=== PATIENT | female | born 1990 | race Caucasian/White ===

== ENCOUNTER → 2019-06-03 15:54 | Outpatient (CLI) | payer BC, SELFPAY ==
--- NOTE | ~2019-06-03 | US_ITS ---
EXAMINATION: US OB <= 14 weeks fetus DATE: 06/03/2019 16:17 INDICATION: Small for gestational age during late first trimester . Assess heart tones . TECHNIQUE: Real-time ultrasound of the pelvis was performed. The interpreting radiologist was not pre sent for the study. COMPARISON: 04/18/2019 FINDINGS: There is a single living fetus in variable presentation with motion reported by the maintenance person . The placenta is anterior. heart rate is 154 beats per minute (bpm). The amniotic fluid is martinez bjectively normal. The following biometric data were obtained: BPD: 2.5 cm -> 14 weeks 1 days Head circumference: 9.2 cm -> 14 weeks 1 days Abdominal circumference: 7.5 cm -> 14 weeks 0 days Femur length: 1.1 cm -> 13 weeks 2 days These measurements are concordant. Head circumference to abdominal circumference ratio: 1.23 (normal range 1.10-1.34). Estimated weight: 81 g (+/-) 12 g. IMPRESSION: 1. Single living fetus in variable presentation with heart rate of 154 bpm. 2. Estimated weight is 86th percentile by Hadlock criteria when 12/10/2019 is used as the estima danielito date of delivery (SARITHA). Please correlate with clinical information or earlier ultrasounds for mos t accurate SARITHA. Reviewed, dictated and finalized at location A. ENGINEER IMPRESSION: 1. Single living fetus in variable presentation with heart rate of 154 bp m. 2. Estimated weight is 86th percentile by Hadlock criteria when 12/10/2019 is used as the estimated date of delivery (SARITHA). Please correlate with clinica l information or earlier ultrasounds for most accurate SARITHA.
== END ==
PROVIDERS: Visit Provider Obstetrics & Gynecology
DX: Z34.91 Encounter for supervision of normal pregnancy, unspecified, first trimester (principal); Z3A.01 Less than 8 weeks gestation of pregnancy
CPT/HCPCS: 76801

== ENCOUNTER → 2019-07-23 08:17 | Outpatient (CLI) | payer BC, SELFPAY ==
--- NOTE | ~2019-07-23 | US_ITS ---
EXAMINATION: US OB /maternal detail DATE: 07/23/2019 09:07 INDICATION: Assess anatomy during second trimester of . TECHNIQUE: Multiple obstetric sonographic images performed. COMPARISON: 06/03/2019 FINDINGS: There is a single living fetus in vertex presentation. The placenta is anterior and not low-lying wi th caudal margin 4.2 cm from the internal cervical os. NIRAV measures 15.5 cm which is normal (5th%-95 %: 9.3-21.2 cm at 20 weeks estimated gestational age) heart rate of 131 beats per minute. The following anatomy was identified as normal: Ventricles, choroid plexus, falx and cava septum pellucidum Cerebellum and cisterna magna Nuchal fold Upper lip Spine Heart Diaphragm Stomach Kidneys Bladder 3 vessel cord and cord insertion Bilateral upper and lower extremities including hands and feet The following biometric data were obtained: BPD: 408 cm -> 20 weeks 4 days Head circumference: 17.5 cm -> 20 weeks 0 days Abdominal circumference: 15.5 cm -> 20 weeks 4 days Femur length: 3.4 cm -> 20 weeks 4 days These measurements are concordant. Head circumference to abdominal circumference ratio: 1.13 (normal range 1.07-1.25). Estimated weight: 361 g (+/-) 54 g. or 13 oz. (+/-) 2 oz. IMPRESSION: 1. Single living fetus with vertex presentation with heart rate of 131 bpm. 2. Biometric data concordant within 3 days of prior ultrasound estimated gestational age of 20 weeks 0 day(s) with ultrasound estimated date of delivery (SARITHA) of 12/10/2019. Estimated weight is 76t h percentile by Hadlock criteria when 12/10/2019 is used as the SARITHA. Please correlate with clinical in formation or earlier ultrasounds for most accurate SARITHA. 3. Normal survey. 4. Normal amniotic fluid index of 15.5 cm. Reviewed, dictated and finalized at location A. IMPRESSION: 1. Single living fetus with vertex presentation with heart rate of 131 b pm. 2. Biometric data concordant within 3 days of prior ultrasound estimated gestat ional age of 20 weeks 0 day(s) with ultrasound estimated date of delivery (SARITHA) of 12/10/2019. Estimated weight is 76th percentile by Hadlock criteria wh en 12/10/2019 is used as the SARITHA. Please correlate with clinical information or earlier ultrasounds for most accurate SARITHA. 3. Normal survey. 4. Normal amniotic fluid index of 15.5 cm.
== END ==
PROVIDERS: Visit Provider Obstetrics & Gynecology
DX: Z36.9 Encounter for antenatal screening, unspecified (principal); Z3A.18 18 weeks gestation of pregnancy
CPT/HCPCS: 76805

== ENCOUNTER 2019-11-13 09:25 | Outpatient (CLI) | payer BC, SELFPAY ==
--- NOTE | ~2019-11-13 | US_ITS ---
EXAMINATION: US OB >= 14 weeks Fetus DATE: 11/13/2019 12:55 INDICATION: Encounter for supervision of first . Third trimester. TECHNIQUE: Real-time ultrasound of the pelvis was performed. COMPARISON: Ultrasound 07/15/2019, 06/03/2019, 04/18/2019 FINDINGS: There is a single living fetus in vertex presentation. The placenta is anterior and fundal. he art rate is 122 beats per minute (bpm). The amniotic fluid volume is subjectively normal. The following biometric data were obtained: Biparietal diameter (BPD): 9.0 cm; head circumference (HC): 32.5 cm; abdominal circumference (AC): 30 .8 cm; femur length (FL): 7.0 cm. These measurements are concordant. Estimated weight is 2669 g +/- 400 g, which correlates with 31st percentile when 12/10/19 is use d as estimated date of delivery. As single measurements, these parameters are each equal to the following estimated gestational ages: BPD: 36 weeks 2 days. HC: 36 weeks 6 days. AC: 34 weeks 5 days. FL: 35 weeks 6 days. estimated gestational age based solely on measurements from this exam is 36 weeks 0 days +/- 2 weeks 4 days. IMPRESSION: 1. Single living fetus in vertex presentation. 2. Estimated weight is 2669 g +/- 400 g, which correlates with 31st percentile when 12/10/19 is used as estimated date of delivery. This date was set by ultrasound on 04/18/2019. Reviewed, dictated and finalized at location A. IMPRESSION: 1. Single living fetus in vertex presentation. 2. Estimated weight is 2669 g +/- 400 g, which correlates with 31st perc entile when 12/10/19 is used as estimated date of delivery. This date was set by ultrasound on 04/18/2019.
== END 2019-11-13 09:26 | disposition home or self-care (01) ==
PROVIDERS: Visit Provider Obstetrics & Gynecology
DX: Z34.03 Encounter for supervision of normal first pregnancy, third trimester (principal); Z3A.36 36 weeks gestation of pregnancy
CPT/HCPCS: 76805

== ENCOUNTER 2019-11-15 09:07 | Outpatient (CLI) | payer BC, SELFPAY ==
[2019-11-15 09:31] LABS: Basophils Percent Auto 0.3 % (0.2-1.2); Eosinophils Absolute Auto 0.1 K/mm3 (0-0.3); Eosinophils Percent Auto 1.1 % (0-4.4); Hematocrit 38.2 % (37.0-47.0); Hemoglobin 12.7 g/dL (12.0-15.0); Immature Granulocyte Absolute 0.07 K/mm3 (0.00-0.031); Immature Granulocyte Percent A 0.7 % (0-0.5); Lymphocytes Percent Auto 18.2 % (18.3-44.2); Mean Corpuscular HGB Conc 33.2 g/dl (32-36); Mean Corpuscular Hemoglobin 29.9 pg (26-34); Mean Corpuscular Volume 89.9 fl (80-100); Mean Platelet Volume 10.6 fl (7.4-10.4); Monocytes Absolute Auto 0.9 K/mm3 (0.1-0.6); Monocytes Percent Auto 9.4 % (2.6-8.5); Neutrophils Absolute Auto 6.6 K/mm3 (1.3-6.7); Neutrophils Percent Auto 70.3 % (45.5-73.1); Platelet Count Result 154 k/mm3 (150-375); Red Blood Count 4.25 M/mm3 (4.2-5.4); Red Cell Distribution Width 13.8 % (11.5-14.5); White Blood Count 9.3 K/mm3 (4.5-10.0)
[2019-11-15 11:57] LABS: Rapid Plasma Reagin Non-Reactive (NonReactive)
== END 2019-11-15 09:08 | disposition home or self-care (01) ==
PROVIDERS: Visit Provider Obstetrics & Gynecology
DX: Z34.90 Encounter for supervision of normal pregnancy, unspecified, unspecified trimester (principal)
CPT/HCPCS: 36415; 85025; 86592

== ENCOUNTER 2019-12-05 04:48 | Inpatient (IN) | payer BC, SELFPAY ==
[2019-12-05] VITALS (193 sets, daily range): BP systolic 76–146; BP diastolic 44–134; PULSE 58–157; RESP 18; TEMP 36.6–38.1; O2SAT 97–100; BMI 25.2
--- NOTE | 2019-12-05 04:48 | LDADM ---
This patient, Pinky Castellano, was admitted to Labor/Delivery/Recovery 103 on 12/05/19 at 04:48. Plans for labor, pain management and were discussed with patient. Patient/family oriented to hospital policies and general routines including ID bracelet, bed and alarms, visiting hours, pain management, procedures, bathroom and other care routines, personal items, smoking policy, room service/diet and guest tray routines, security routines, and visiting hours. Patient/Family are encouraged to report perceived risks to care and to ask questions if they do not understand what they are told or what they should do. See OBIX for further documentation.
[2019-12-05] MEDS: LACTATED RINGERS 1,000 ML 125 ML IV CONT ×4 (05:32→15:41)
[2019-12-05] MEDS: OXYTOCIN 30 UNITS/NS 500 ML 30 UNITS/500 ML BAG 4 UNITS IV CONT (05:33)
[2019-12-05 05:36] LABS: Basophils Percent Auto 0.5 % (0.2-1.2); Eosinophils Absolute Auto 0.1 K/mm3 (0-0.3); Eosinophils Percent Auto 1.2 % (0-4.4); Hematocrit 35.6 % (37.0-47.0); Hemoglobin 12.1 g/dL (12.0-15.0); Immature Granulocyte Absolute 0.07 K/mm3 (0.00-0.031); Immature Granulocyte Percent A 0.8 % (0-0.5); Lymphocytes Absolute Auto 2.05 K/mm3 (0.9-3.2); Mean Corpuscular Volume 88.3 fl (80-100); Mean Platelet Volume 11.2 fl (7.4-10.4); Monocytes Absolute Auto 0.5 K/mm3 (0.1-0.6); Monocytes Percent Auto 6.1 % (2.6-8.5); Neutrophils Absolute Auto 5.8 K/mm3 (1.3-6.7); Neutrophils Percent Auto 67.4 % (45.5-73.1); Platelet Count Result 149 k/mm3 (150-375); Red Blood Count 4.03 M/mm3 (4.2-5.4); Red Cell Distribution Width 14.1 % (11.5-14.5); White Blood Count 8.5 K/mm3 (4.5-10.0)
[2019-12-05 06:27] LABS: Rubella IgG Antibody 18.9 IU/ML
[2019-12-05 06:42] LABS: Hepatitis B Surface Antigen Negative (Negative)
--- NOTE | 2019-12-05 07:15 | WPDANESEPP ---
Anes - Eval Pre Procedure Procedure: labor epidural Date/Time: 12/05/19 07:15 Surgeon: marva Pre Op Diagnosis: Induction of Labor Patient Data Age: 29 Gender: F Height: 1.57 m Weight: 62.7 kg Last Vital Signs Temp 36.6 C 12/05/19 05:24 Pulse 88 12/05/19 07:01 Resp 18 12/05/19 05:24 BP 118/73 12/05/19 07:01 Allergies Allergy/AdvReac Type Severity Reaction Status Date / Time No Known Allergies Allergy Verified 11/29/19 08:16 Home Medications Medication Instructions Recorded Confirmed Type cholecalciferol (vitamin D3) 125 125 mcg PO [id number] 10/06/19 12/05/19 History mcg (5,000 unit) capsule prenat.vits,omkar,opn-lzom-mjuaz 1 tablet PO DAILY 10/06/19 12/05/19 History Laboratory Tests 12/05/19 12/05/19 12/05/19 05:18 05:18 05:18 WBC 8.5 K/mm3 K/mm3 (4.5-10.0) RBC 4.03 M/mm3 L M/mm3 (4.2-5.4) Hgb 12.1 g/dL g/dL (12.0-15.0) Hct 35.6 % L % (37.0-47.0) MCV 88.3 fl fl (80-100) MCH 30.0 pg pg (26-34) MCHC 34.0 g/dl g/dl (32-36) RDW 14.1 % % (11.5-14.5) Plt Count 149 k/mm3 L k/mm3 (150-375) MPV 11.2 fl H fl (7.4-10.4) Immature Gran % (Auto) 0.8 % H % (0-0.5) Neut % (Auto) 67.4 % % (45.5-73.1) Lymph % (Auto) 24.0 % % (18.3-44.2) [place] % (Auto) 6.1 % % (2.6-8.5) Eos % (Auto) 1.2 % % (0-4.4) Baso % (Auto) 0.5 % % (0.2-1.2) Lymph # (Auto) 2.05 K/mm3 K/mm3 (0.9-3.2) [place] # (Auto) 0.5 K/mm3 K/mm3 (0.1-0.6) Eos # (Auto) 0.1 K/mm3 K/mm3 (0-0.3) Baso # (Auto) 0.0 K/mm3 K/mm3 (0.0-0.1) Abs Immat Gran (auto) 0.07 K/mm3 H K/mm3 (0.00-0.031) Absolute Neuts (auto) 5.8 K/mm3 K/mm3 (1.3-6.7) Absolute Nucleated RBC 0.0 K/mm3 K/mm3 (0.0-0.012) Nucleated RBC % 0.0 % % (0.0-0.2) RPR Hep Bs Antigen HIV 1&2 Ab/P24 Ag 4thGn Pending Rubella IgG Antibody 18.9 IU/ML IU/ML (10 - ) Blood Type Antibody Screen 12/05/19 12/05/19 12/05/19 05:18 05:18 05:18 WBC RBC Hgb Hct MCV MCH MCHC RDW Plt Count MPV Immature Gran % (Auto) Neut % (Auto) Lymph % (Auto) [place] % (Auto) Eos % (Auto) Baso % (Auto) Lymph # (Auto) [place] # (Auto) Eos # (Auto) Baso # (Auto) Abs Immat Gran (auto) Absolute Neuts (auto) Absolute Nucleated RBC Nucleated RBC % RPR Pending Hep Bs Antigen Negative (Negative) HIV 1&2 Ab/P24 Ag 4thGn Rubella IgG Antibody Blood Type A Positive Antibody Screen Negative Patient hx anesthesia problems: none Family hx anesthesia problems: none [facility] Social History Social History Smoking status: Never smoker Substance use: never Gender identity (if verbalized by the patient): Female Spiritual care concerns: No Exam Day of Procedure 12/05/19 07:16
[2019-12-05 07:48] LABS: HIV 1/2 Ab P24 Ag Result Negative (Negative)
[2019-12-05 10:02] LABS: Rapid Plasma Reagin Non-Reactive (NonReactive)
--- NOTE | 2019-12-05 10:09 | PM.IMHP ---
H&P: HPI History of Present Illness Date/Time: 12/05/19 10:09 Chief complaint: Induction of Labor Narrative: Pinky Castellano is a 29 year old female , primigravida comes to L & D at 39 weeks 2 days. confirmed by SARITHA of 12/10/2019 for IOL. complicated by Impaired 3 hr GTT . Arom perfromed, clear fluid.IUPC placed without difficulty. status reassuring. Desires epidural. Review of Systems Constitutional: Constitutional: Reports no additional constitutional complaints ENT: Reports Normal hearing present Cardiovascular: Cardiovascular: Reports no additional cardiovascular complaints Respiratory: Respiratory: Reports no additional respiratory complaints Gastrointestinal: Gastrointestinal: Reports no additional gastrointestinal complaints Genitourinary: Genitourinary: Reports no additional female genitourinary complaints Musculoskeletal: Musculoskeletal: Reports no additional musculoskeletal complaints Neurologic: Denies headache(s) [facility] Social History Social History Smoking status: Never smoker Substance use: never Gender identity (if verbalized by the patient): Female Spiritual care concerns: No Meds Home Medications and Allergies Home Medications Medication Instructions Recorded Confirmed Type cholecalciferol (vitamin D3) 125 125 mcg PO [id number] 10/06/19 12/05/19 History mcg (5,000 unit) capsule prenat.vits,omkar,uef-ynxd-fyejh 1 tablet PO DAILY 10/06/19 12/05/19 History Allergies Allergy/AdvReac Type Severity Reaction Status Date / Time No Known Allergies Allergy Verified 11/29/19 08:16 Vital Signs Vital Signs - 24 hr 12/05/19 05:24 12/05/19 05:31 12/05/19 05:46 Temperature 36.6 C Pulse Rate 90 83 86 Respiratory Rate 18 Blood Pressure 129/89 125/83 120/80 12/05/19 06:01 12/05/19 06:16 12/05/19 06:31 Temperature Pulse Rate 84 80 82 Respiratory Rate Blood Pressure 122/76 124/83 111/76 12/05/19 06:46 12/05/19 07:01 12/05/19 07:16 Temperature Pulse Rate 86 88 90 Respiratory Rate Blood Pressure 126/86 118/73 116/64 12/05/19 07:31 12/05/19 07:46 12/05/19 07:50 Temperature Pulse Rate 84 93 75 Respiratory Rate Blood Pressure 117/79 102/44 L 125/92 H 12/05/19 08:01 12/05/19 08:16 12/05/19 08:30 Temperature Pulse Rate 81 81 76 Respiratory Rate Blood Pressure 128/82 128/84 126/82 12/05/19 08:45 12/05/19 08:54 12/05/19 09:00 Temperature 37.1 C Pulse Rate 80 83 Respiratory Rate Blood Pressure 126/86 125/81 12/05/19 09:15 12/05/19 09:30 12/05/19 09:45 Temperature Pulse Rate 82 72 79 Respiratory Rate Blood Pressure 126/85 127/86 131/81 12/05/19 10:00 Temperature Pulse Rate 72 Respiratory Rate Blood Pressure 133/90 Exam Const: General: comfortable and no acute distress Eyes: General: appearance normal, both eyes and all related structures Resp: Effort & Inspection: normal respiratory effort Auscultation: clear to auscultation bilaterally Cardio: Rate: regular rate Rhythm: regular rhythm GI: Auscultation: normal bowel sounds Other: Gravid uterus H&P: Results Labs Labs: Short CBC 12/05/19 Range/Units 05:18 WBC 8.5 (4.5-10.0) K/mm3 Hgb 12.1 (12.0-15.0) g/dL Hct 35.6 L (37.0-47.0) % Plt Count 149 L (150-375) k/mm3 Assessment and Plan Additional Plan Primigravida for IOL status reassuring Expectant managment of labor.
--- NOTE | 2019-12-05 21:27 | PM.OBPRVD ---
OB - Delivery Note Procedure Delivery date: 12/05/19 Procedure: , repair of right labial and 1 st degree perineal tear Induction method: AROM and per pitocin protocol Delivery monitor: external FHT, external uterine and internal uterine Route of delivery: Episiotomy description: None Laceration description: Perineal - 1st Degree (right) Delivery repair: vicryl (3-0) Estimated blood loss (mL): 200 Anesthesia type: Epidural Disposition: floor Complications: while pushing had temp of 100.5 and withing 5 min, infant was delivered. Baby Date of : 12/05/19 Weeks of gestation at delivery: 39 Infant gender: Female Weight (pounds): 7 Weight (ounces): 9 presentation: vertex position: Left Occiput Anterior Placenta delivery description: Spontaneous cord vessel description: 3 Vessels score one minute: 8 score five minutes: 9
--- NOTE | 2019-12-05 21:30 | PM.OBDSVD ---
OB - DS: Summary OB Procedures : None OB Procedures Intrapartum: Spontaneous Vag Delivery OB Procedures: : Antibiotics (for temp during pushing) Peripartum Data Infant Delivery Method: Natural Vaginal Laceration description: Labial (right) complications: none Status at Discharge Functional status at discharge: independent ambulation Overall status at discharge: patient is back to baseline Time Spent with Patient Time attestation: Total time spent providing and/or coordinating discharge services: Exam Const: General: comfortable, no acute distress, alert and awake Resp: Effort & Inspection: normal respiratory effort Auscultation: clear to auscultation bilaterally Cardio: Rate: regular rate GI: Inspection: non-distended GI Palp: Yes Soft to palpation and No Tenderness to palpation present (GI) Auscultation: normal bowel sounds Other: Fundus firm below umbilicus Psych: Appearance: grossly normal Affect: normal affect Attitude: cooperative Thought content: Yes Normal thought content present Judgement: Good judgement present (Psych) DS: Data Data Completed and Pending Pending studies at discharge: Pending at discharge 12/05/19 21:12 Surgical [PTH] Routine Labs on day of discharge: Labs from last 24 hours 12/05/19 12/05/19 12/05/19 05:18 05:18 05:18 WBC RBC Hgb Hct MCV MCH MCHC RDW Plt Count MPV Immature Gran % (Auto) Neut % (Auto) Lymph % (Auto) [place] % (Auto) Eos % (Auto) Baso % (Auto) Lymph # (Auto) [place] # (Auto) Eos # (Auto) Baso # (Auto) Abs Immat Gran (auto) Absolute Neuts (auto) Absolute Nucleated RBC Nucleated RBC % RPR Non-reactive Hep Bs Antigen Negative HIV 1&2 Ab/P24 Ag 4thGn Rubella IgG Antibody Blood Type A Positive Antibody Screen Negative 12/05/19 12/05/19 12/05/19 05:18 05:18 05:18 WBC 8.5 RBC 4.03 L Hgb 12.1 Hct 35.6 L MCV 88.3 MCH 30.0 MCHC 34.0 RDW 14.1 Plt Count 149 L MPV 11.2 H Immature Gran % (Auto) 0.8 H Neut % (Auto) 67.4 Lymph % (Auto) 24.0 [place] % (Auto) 6.1 Eos % (Auto) 1.2 Baso % (Auto) 0.5 Lymph # (Auto) 2.05 [place] # (Auto) 0.5 Eos # (Auto) 0.1 Baso # (Auto) 0.0 Abs Immat Gran (auto) 0.07 H Absolute Neuts (auto) 5.8 Absolute Nucleated RBC 0.0 Nucleated RBC % 0.0 RPR Hep Bs Antigen HIV 1&2 Ab/P24 Ag 4thGn Negative Rubella IgG Antibody 18.9 Blood Type Antibody Screen Discharge Plan Discharge Attending physician on discharge: Emely Mcintosh Discharging Clinician: Emely Mcintosh Anticipated Discharge Date/Time: 12/07/19 11:02 Patient Disposition: Home, Self-Care Activity: may drive after 2 weeks, as tolerated and pelvic rest Diet: regular Patient Instructions: Antibiotic Form Stand Alone Forms: General Discharge Information Follow-up/Referrals: Emely Mcintosh MD [Physician] - Discharge Medications: New docusate sodium 100 mg Capsule 100 mg PO BID PRN (Reason: Constipation) Qty: 60 RF: 0 ibuprofen 600 mg Tablet 600 mg PO Q6H PRN (Reason: Cramping) Qty: 60 RF: 0 Continued prenat.vits,omkar,qth-xrln-tkafh Tablet 1 tablet PO DAILY RF: 0 cholecalciferol (vitamin D3) 125 mcg (5,000 unit) capsule 125 mcg PO [id number] RF: 0 Date of admission: 12/05/19 04:48 Primary Care Provider: PHYSICIAN,FIRST CALENDER WORKER Admitting Provider: Emely Mcintosh Attending physician on admission: Emely Mcintosh
[2019-12-05] MEDS: ceFAZolin 2 GM/D5W 50 ML 2 GM/50 ML BAG IVPB (21:37)
[2019-12-05] MEDS: WITCH HAZEL 40 PADS 1 PAD TOPICAL (23:16)
[2019-12-05] MEDS: BENZOCAINE 20% AER SPR (*SP) 56 GM CAN 1 SPRAY TOPICAL (23:16)
[2019-12-06 00:01] VITALS: BP 139/83; PULSE 89; RESP 18; TEMP 36.9; O2SAT 100
--- NOTE | 2019-12-06 00:29 | PC.NURSE ---
12/05/2019 at 2358 Patient transferred to post room #281. Support person present. Oriented to unit, room, information board, rooming in, admission packet and security measures. Patient verbalizes understanding.
[2019-12-06] MEDS: IBUPROFEN 600 MG TABLET PO ×3 (01:16→19:43)
[2019-12-06] MEDS: ceFAZolin 2 GM/D5W 50 ML 2 GM/50 ML BAG IVPB ×2 (05:23→13:47)
[2019-12-06 05:34] LABS: Hematocrit 35.4 % (37.0-47.0); Hemoglobin 12.2 g/dL (12.0-15.0)
[2019-12-06 07:30] VITALS: BP 124/85; PULSE 84; RESP 16; TEMP 37.6; O2SAT 100
--- NOTE | 2019-12-06 08:13 | WPDANLDPN2 ---
Anes-Prog Note L&D Date/Time: 12/06/19 08:13 Comfortable throughout: labor and delivery Neuraxial method: epidural Epidural/Spinal procedure site: clean & non-tender Neuro status: Neuro function grossly intact. Cardiovascular status: normal Respiratory status: normal Airway patency: baseline Mental status: baseline Post-Op hydration status: normal Vital Signs: Last Vital Signs Temp 36.9 C 12/06/19 00:01 Pulse 89 12/06/19 00:01 Resp 18 12/06/19 00:01 BP 139/83 12/06/19 00:01 Pulse Ox 100 12/06/19 00:01 I/O: Intake & Output 12/05/19 12/06/19 12/06/19 23:59 07:59 15:59 Intake Total 550 Output Total 1131 Balance -581 Post-procedural complaints: none Patient feedback: Patient satisfied with anesthetic care.
[2019-12-06] MEDS: DOCUSATE SODIUM 100 MG CAPSULE PO ×2 (08:48→19:43)
[2019-12-06] MEDS: MULTIVIT/MIN/PREN/FOL AC/IRON TABLET 1 TAB PO (08:48)
--- NOTE | 2019-12-06 09:19 | P.PNOB_ITS ---
OB - PN: Subj Subjective Date/time seen: 12/06/19 09:19 Patient comments: no complaints, pain well controlled, tolerating diet and flatus present [place] baby status: doing well [place] feeding status: pumping and bottle feeding OB - PN: Obj Data Labs CBC & Chem 7: 12/06/19 05:29 Labs: Laboratory Results - last 24 hr 12/05/19 12/06/19 05:18 05:29 Hgb 12.2 Hct 35.4 L RPR Non-reactive OB - PN A/P Plan day: 1 Plan: routine care Comments: encourage ambulation Time Spent With Patient Time: Total time spent is greater than 50% in coordination of care (as documented) at patient's floor/unit and/or counseling patient: Time with patient: less than 15 minutes Review of Systems Constitutional: Constitutional: Reports no additional constitutional comp laints Cardiovascular: Cardiovascular: Reports no additional cardiovascular complaints Respiratory: Respiratory: Reports no additional respiratory complaints Gastrointestinal: Gastrointestinal: Reports no additional gastrointestinal complaints Genitourinary: Genitourinary: Reports no additional female genitourinary complaints Exam Const: General: comfortable, no acute distress, alert and awake Resp: Effort & Inspection: normal respiratory effort Auscultation: clear to auscultation bilaterally Cardio: Rate: regular rate GI: Auscultation: normal bowel sounds Other: Fundus firm below umbilicus Psych: Appearance: grossly normal Affect: normal affect Attitude: cooperative Judgement: Good judgement present (Psych)
[2019-12-06 15:00] VITALS: TEMP 37
[2019-12-06 20:00] VITALS: BP 118/86; PULSE 69; RESP 16; TEMP 36.7; O2SAT 97
[2019-12-07 07:35] VITALS: BP 120/89; PULSE 71; RESP 16; TEMP 36.9; O2SAT 99
[2019-12-07] MEDS: MULTIVIT/MIN/PREN/FOL AC/IRON TABLET 1 TAB PO (08:20)
--- NOTE | 2019-12-07 09:15 | PC.NURSE ---
Consult with pt., mother reports she had pain and difficulties with latching. Mother began pumping and bottle feeding and wishes to continue with this feeding plan. Discussed nipple tissue healing within a few days and may be able to return to breast if she chooses. Mother is happy with current plan. Reviewed instructions given on breast pump care and usage, pumping schedule, nipple care, and collection and storage of breast milk. Encouraged [id number], breast massage and manual expression to stimulate supply. Pumping log provided and reviewed. Assessed patient for correct flange size, placement and draw. Patient verbalizes and demonstrates understanding of instructions. Mother is feeding as required and waking infant to feed if needed. Infant is currently meeting outcomes for weight, output, jaundice and feeding frequencies. Mother states she feels confident to continue current feeding plan of pump and bottle feeding at home. Reviewed transition to breast milk, signs of adequate intake, and engorgement/relief. Instructed to call ICP if intake/output less than required. Reviewed regular medications mother is taking. Information provided per Olivia. Reviewed community resources on the [facility] website and in the Mom/Baby guide. Information on outpatient services provided. Mother has no further questions at this time.
--- NOTE | 2019-12-07 11:00 | P.PNOB_ITS ---
OB - PN: Subj Subjective Date/time seen: 12/07/19 11:00 Patient comments: no complaints, pain well controlled, tolerating diet and flatus present [place] baby status: doing well, nursing well and bottle feeding well [place] feeding status: breast and bottle feeding OB - PN: Obj Data Labs CBC & Chem 7: 12/06/19 05:29 OB - PN A/P Plan day: 2 Plan: discharge home and follow up 6 weeks Time Spent With Patient Time: Total time spent is greater than 50% in coordination of care (as documented) at patient's floor/unit and/or counseling patient: Time with patient: 15 - 25 minutes Review of Systems Constitutional: Constitutional: Reports no additional constitutional complaints Cardiovascular: Cardiovascular: Reports no additional cardiovascular complaints Respiratory: Respiratory: Reports no additional respiratory complaints Gastrointestinal: Gastrointestinal: Reports no additional gastrointestinal complaints Genitourinary: Genitourinary: Reports no additional female genitourinary complaints Exam Const: General: comfortable, no acute distress, alert and awake Resp: Effort & Inspection: normal respiratory effort Auscultation: clear to auscultation bilaterally Cardio: Rate: regular rate GI: Auscultation: normal bowel sounds
--- NOTE | 2019-12-07 14:33 | PC.NURSE ---
[id number] Patient and FOB viewed the discharge video Mother & Baby Care, The First Two Weeks . Patient was given the opportunity and encouraged to ask questions. Patient verbalized understanding of information shared and has been given the mother/baby guide for home reference.
[2019-12-08 10:12] VITALS: BP 127/87; PULSE 79; RESP 20; O2SAT 99
== END 2019-12-07 14:10 | disposition home or self-care (01) | DRG 806 ==
LOC: ANHLDR 04:51 → ANHOB2 12-06 00:28
PROVIDERS: Admitting Provider Obstetrics & Gynecology; Visit Provider Obstetrics & Gynecology
DX: O70.0 First degree perineal laceration during delivery (principal); O75.2 Pyrexia during labor, not elsewhere classified; Z37.0 Single live birth; Z3A.39 39 weeks gestation of pregnancy; O36.8330 Maternal care for abnormalities of the fetal heart rate or rhythm, third trimester, not applicable or unspecified
CPT/HCPCS: 36415; 85014; 85018; 85025; 86592; 86703; 86762; 86850; 86900; 86901; 87340; 88307; A9270; G0432; J0690; J2590; J2795; J7120

== ENCOUNTER 2020-02-15 04:00 | Outpatient (CLI) | payer BC, SELFPAY ==
[2020-02-15 19:05] LABS: SARS-CoV-2 RNA PCR Negative
== END 2020-02-15 04:01 | disposition home or self-care (01) ==
LOC: ANHCOVIDDT 04:00
PROVIDERS: Visit Provider Obstetrics & Gynecology
DX: Z01.812 Encounter for preprocedural laboratory examination (principal); Z20.828 Contact with and (suspected) exposure to other viral communicable diseases
CPT/HCPCS: 87635; C9803; U0003

== ENCOUNTER 2020-02-17 03:04 | Day surgery (SDC) | payer BC, SELFPAY ==
[2020-02-10 11:11] VITALS: BMI 21.9
--- NOTE | 2020-02-16 12:38 | PM.IMHP ---
H&P: HPI History of Present Illness Date/Time: 02/16/20 12:38 Chief complaint: BARB 2 Narrative: Pinky Castellano is a 30 year old female comes for LEEP procedure. 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 pt as well as Partner voiced verbalized. All question answered. Review of Systems Constitutional: Constitutional: Reports as per HPI, Denies chills and Denies fever(s) Eyes: Eyes: Reports as per HPI and Reports no additional eye complaints ENT: Reports as per HPI and Reports Normal hearing present Cardiovascular: Cardiovascular: Reports as per HPI, Denies chest pain and Denies dyspnea Respiratory: Respiratory: Reports as per HPI, Denies chest congestion, Denies cough and Denies dyspnea Gastrointestinal: Gastrointestinal: Reports as per HPI, Reports no additional gastrointestinal complaints, Denies abdominal pain, Denies melena, Denies hematochezia, Denies constipation, Denies GI cramping, Denies diarrhea, Denies nausea and Denies vomiting Genitourinary: Genitourinary: Reports no additional female genitourinary complaints, Reports as per HPI, Denies urinary frequency, Denies genital pruritis, Denies genital lesions, Denies dysmenorrhea, Denies pelvic pain, Denies urinary incontinence, Denies urinary urgency, Denies vaginal discharge, Denies vaginal dryness, Denies vaginal odor and Denies vaginal pruritus Musculoskeletal: Musculoskeletal: Reports no additional musculoskeletal complaints and Reports as per HPI Integumentary/Breasts: Skin/Breast: Reports as per HPI, Denies breast pain, Denies breast mass and Denies change in breast shape Neurologic: Reports as per HPI and Reports Normal hearing present Psychiatric: Psychiatric: Reports as per HPI Endocrine: Endocrine: Reports as per HPI Hematologic/Lymphatic: Hematologic/Lymphatic: Reports as per HPI, Denies easy bleeding and Denies easy bruising Allergic/Immunologic: Allergic/Immunologic: Reports as per HPI [facility] Past Medical History Medical History (Updated 02/16/20 @ 12:50 by Emely Mcintosh MD) BARB II (cervical intraepithelial neoplasia II) Vaginal delivery Family History Family History Other No pertinent family history Social History Social History Smoking status: Never smoker Alcohol intake: current Drinks per week: 4 Substance use: never Gender identity (if verbalized by the patient): Female Spiritual care concerns: No Meds Home Medications and Allergies Home Medications Medication Instructions Recorded Confirmed Type norethindrone 1 mg-ethinyl 1 tablet PO DAILY #84 tablet 02/02/20 02/10/20 Rx estradiol 20 mcg (24)-iron 75 mg (4) tablet Allergies Allergy/AdvReac Type Severity Reaction Status Date / Time No Known Allergies Allergy Verified 02/10/20 11:12 Exam Const: General: cooperative, healthy appearing, comfortable, no acute distress, well developed, alert, awake, Physically active and well groomed Nutritional Appearance: well nourished Orientation/consciousness: oriented to person, oriented to place, oriented to time and patient oriented x3 Limitations: no limitations HENMT: Head: normal to inspection, No palpable skull fracture present, normocephalic and atraumatic Ears: hearing grossly normal bilaterally Eyes: General: appearance normal, both eyes and all related structures Neck: Neck: normal visual inspection, full ROM and no lymphadenopathy Thyroid: thyro
[2020-02-17 10:00] VITALS: BP 125/86; PULSE 67; RESP 16; TEMP 36.3; O2SAT 100
[2020-02-17] MEDS: ACETAMINOPHEN 500 MG TABLET 1000 MG PO (10:36)
[2020-02-17] MEDS: LACTATED RINGERS 1,000 ML 30 ML IV CONT (11:00)
--- NOTE | 2020-02-17 11:40 | WPDANESEPPF ---
Anes - Initial Pre Proc Eval Procedure: Operation Date: 02/17/20 12:00 Proposed Procedures p Loop Electrical Excision Procedure - Emely Mcintosh MD Date/Time: 02/17/20 11:40 Surgeon: Emely Mcintosh MD Pre Op Diagnosis: BARB 2 Patient Data Age: 30 Gender: F Height: 5 ft 2 in Weight: 51.7 kg Last Vital Signs Temp 36.3 C L 02/17/20 10:00 Pulse 67 02/17/20 10:00 Resp 16 02/17/20 10:00 BP 125/86 02/17/20 10:00 Pulse Ox 100 02/17/20 10:00 Allergies Allergy/AdvReac Type Severity Reaction Status Date / Time No Known Allergies Allergy Verified 02/17/20 11:21 Home Medications Medication Instructions Recorded Confirmed Type norethindrone 1 mg-ethinyl 1 tablet PO DAILY #84 tablet 02/02/20 02/17/20 Rx estradiol 20 mcg (24)-iron 75 mg (4) tablet Patient hx anesthesia problems: none Family hx anesthesia problems: none PMFSH Past Medical History Medical History BARB II (cervical intraepithelial neoplasia II) Vaginal delivery Family History Family History Other No pertinent family history Social History Social History Smoking status: Never smoker Alcohol intake: current Drinks per week: 4 Substance use: never Gender identity (if verbalized by the patient): Female Spiritual care concerns: No Anes - Eval Final PreProcedure Day of Procedure 02/17/20 11:40 Patient weight: normal Heart: regular rate and rhythm Lungs: clear to auscultation and other Airway: Mallampati scale class 1 Neurological: alert and oriented Last oral intake: >/= 8 hours ASA classification: I Emergent: no Anesthetic plan: proceed Anesthesia type and monitoring: general GIVS and standard monitoring Informed Consent: The patient's anesthetic plan and its attendant risks and benefits were discussed with the patient/family/POA. Questions were solicited and answers provided to the satisfaction of the patient/family/POA.
--- NOTE | 2020-02-17 11:56 | WPDHPUPDATE1 ---
History and Physical Update Update Date/Time: 02/17/20 11:56 History and Physical has been reviewed, including an updated exam of the patient. There are NO changes in the patient's condition. Risks, benefits, and alternatives have been discussed and questions answered. Patient agrees to proceed with procedure.
[2020-02-17] MEDS: LIDO 1%/EPINEPHRINE 1:100,000 20 ML VIAL INFILTRATE (12:26)
[2020-02-17 12:50] VITALS: BP 119/77; PULSE 66; RESP 16; O2SAT 100
--- NOTE | 2020-02-17 12:53 | PM.PROC ---
Procedure Note - Detailed Date of procedure: 02/17/20 Pre-op diagnosis: BARB 2 Post-op diagnosis: same Procedure performed: LEEP with 2.5 X 1X 12 CM ELECTRODE Description of procedure: In pre op area, discussed with pt the Risk/Benefits and alternative of procedure . Procedure also discussed briefly and risk including infection/bleeding/salas injury to adjacent structure. Pt voiced verbalized. Consent obtained. pt taken to OR and anesthesia instituted. Pt given dorsal lithotomy position and was prepped and drapped in normal sterile fashion. Time out performed. Simple rubber catheter introduced to empty bladder. Coated speculum placed.Anterior lip of cervix caught with coated tenaculum and 20 cc of 1% lidocaine with epinephrine injected intracervically. Coded tenaculum removed.Lateral vaginal wall coded retractor placed and LEEP performed. ECC performed. Edges of cervix was cauterized with Roller ball cauter. Excellent hemostasis noted. Monsel solution applied.Speculum removed. All counts correct.Pt taken to recovery room awake and stable condition. Anesthesia: MAC Surgeon: Emely Mcintosh MD Estimated blood loss (mL): 25 Urine output (mL): 20 Drains: No Packing: No Pathology: yes Complications: No immediate complications Condition: stable Disposition: PACU
[2020-02-17 13:20] VITALS: BP 128/72; PULSE 68; RESP 14
== END 2020-02-17 13:55 | disposition home or self-care (01) ==
PROVIDERS: Visit Provider Obstetrics & Gynecology
PROC: 0UBC7ZZ Excision of Cervix, Via Natural or Artificial Opening (ICD-10-PCS; CPT 57522; principal; 2020-02-17 12:00)
DX: N87.1 Moderate cervical dysplasia (principal)
CPT/HCPCS: 57522; 88305; A9270; J2250; J2405; J2704; J3010; J7120

== ENCOUNTER 2021-11-05 08:26 | Outpatient (CLI) | payer BC, SELFPAY ==
[2021-11-05 09:38] LABS: Basophils Percent Auto 0.4 % (0.2-1.2); Eosinophils Absolute Auto 0.1 K/mm3 (0-0.3); Eosinophils Percent Auto 0.9 % (0-4.4); Hematocrit 37.1 % (37.0-47.0); Hemoglobin 12.1 g/dL (12.0-15.0); Immature Granulocyte Absolute 0.06 K/mm3 (0.00-0.031); Immature Granulocyte Percent A 0.7 % (0-0.5); Lymphocytes Absolute Auto 2.01 K/mm3 (0.9-3.2); Lymphocytes Percent Auto 21.9 % (18.3-44.2); Mean Corpuscular HGB Conc 32.6 g/dl (32-36); Mean Corpuscular Hemoglobin 29.5 pg (26-34); Mean Corpuscular Volume 90.5 fl (80-100); Mean Platelet Volume 9.5 fl (7.4-10.4); Monocytes Absolute Auto 0.4 K/mm3 (0.1-0.6); Monocytes Percent Auto 4.7 % (2.6-8.5); Neutrophils Absolute Auto 6.6 K/mm3 (1.3-6.7); Neutrophils Percent Auto 71.4 % (45.5-73.1); Platelet Count Result 168 k/mm3 (150-375); White Blood Count 9.2 K/mm3 (4.5-10.0)
[2021-11-05 09:49] LABS: Glucose 1 Hour PP 50gm Dose 150 mg/dL
== END 2021-11-05 08:27 | disposition home or self-care (01) ==
LOC: ANHLAB 08:28
PROVIDERS: Visit Provider Student in an Organized Health Care Education/Training Program
DX: Z34.82 Encounter for supervision of other normal pregnancy, second trimester (principal)
CPT/HCPCS: 36415; 82947; 85025

== ENCOUNTER 2021-11-19 07:43 | Outpatient (CLI) | payer BC, SELFPAY ==
[2021-11-19 08:07] LABS: Glucose Fasting Gestational 88 mg/dL (>/=95)
[2021-11-19 09:44] LABS: Glucose 1 Hour Gest 147 mg/dL (>/=180)
[2021-11-19 10:28] LABS: Glucose 2 Hour Gest 136 mg/dL (>/= 155)
[2021-11-19 11:30] LABS: Glucose 3 Hour Gest 132 mg/dL (>/=140)
== END 2021-11-19 07:44 | disposition home or self-care (01) ==
LOC: ANHLAB 07:44
PROVIDERS: Visit Provider Student in an Organized Health Care Education/Training Program
DX: O99.810 Abnormal glucose complicating pregnancy (principal); Z3A.00 Weeks of gestation of pregnancy not specified
CPT/HCPCS: 36415; 82951; 82952

== ENCOUNTER 2021-12-03 09:51 | Outpatient (CLI) | payer BC, SELFPAY ==
[2021-12-03 10:26] LABS: Basophils Percent Auto 0.4 % (0.2-1.2); Eosinophils Absolute Auto 0.1 K/mm3 (0-0.3); Eosinophils Percent Auto 0.8 % (0-4.4); Hematocrit 36.4 % (37.0-47.0); Hemoglobin 11.7 g/dL (12.0-15.0); Immature Granulocyte Absolute 0.09 K/mm3 (0.00-0.031); Immature Granulocyte Percent A 1.2 % (0-0.5); Lymphocytes Absolute Auto 1.45 K/mm3 (0.9-3.2); Lymphocytes Percent Auto 18.6 % (18.3-44.2); Mean Corpuscular HGB Conc 32.1 g/dl (32-36); Mean Corpuscular Hemoglobin 29.2 pg (26-34); Mean Corpuscular Volume 90.8 fl (80-100); Mean Platelet Volume 10.6 fl (7.4-10.4); Monocytes Absolute Auto 0.7 K/mm3 (0.1-0.6); Neutrophils Absolute Auto 5.5 K/mm3 (1.3-6.7); Platelet Count Result 158 k/mm3 (150-375); Red Blood Count 4.01 M/mm3 (4.2-5.4); Red Cell Distribution Width 14.2 % (11.5-14.5); White Blood Count 7.8 K/mm3 (4.5-10.0)
[2021-12-03 11:17] LABS: HIV 1/2 Ab P24 Ag Result Negative (Negative)
[2021-12-04 12:12] LABS: Rapid Plasma Reagin Non-Reactive (NonReactive)
== END 2021-12-03 09:52 | disposition home or self-care (01) ==
LOC: ANHLAB 09:55
PROVIDERS: Visit Provider Student in an Organized Health Care Education/Training Program
DX: Z34.83 Encounter for supervision of other normal pregnancy, third trimester (principal)
CPT/HCPCS: 36415; 85025; 86592; 86703; G0432

== ENCOUNTER 2022-01-05 23:53 | Observation (INO) | payer BC, SELFPAY ==
--- NOTE | ~2022-01-05 | US_ITS ---
EXAMINATION: US OB limited w BPP DATE: 01/06/2022 07:46 INDICATION: Decelerations. Third trimester. TECHNIQUE: Real-time pelvic ultrasound was performed. COMPARISON: None. FINDINGS: There is a single living fetus in vertex presentation. The placenta is fundal. heart rate is 1 68 beats per minute (bpm). The amniotic fluid index is 11.9 cm, which is normal. Biophysical profile performed by the technologist: breathing (30 sec sustained breathing in 30 minutes): 2 out of 2 movement (3 gross body movements in 30 minutes): 2 out of 2 tone (one episode of lzpidcf-wjvmrhzem-azbfhfw limb movement): 2 out of 2 Amniotic fluid pocket (2 cm): 2 out of 2 Total score: 8 out of 8 IMPRESSION: 1. Single living fetus in vertex presentation. 2. Biophysical profile 8 out of 8. Reviewed, dictated and finalized at location A.
--- NOTE | 2022-01-05 22:16 | PC.NURSE ---
Updated Dr. Hazel on FHT assessment; including deceleration. Updated on patient contractions q2-4 minutes. Patient denies feeling contractions. VSS. Patient reporting increased movement since arriving at OB unit for monitoring. Order to perform SVE, continue to monitor patient for 1 hour following exam.
--- NOTE | 2022-01-05 23:53 | OBADM ---
This patient, Pinky Castellano, admitted to the OB room OB Post 116 for observation. Patient/family oriented to hospital policies and general routines including ID bracelet, bed and alarms, visiting hours, pain management, procedures, bathroom and other care routines, personal items, smoking policy, room service/diet, and visiting hours. Patient/Family are encouraged to report perceived risks to care and to ask questions if they do not understand what they are told or what they should do.
[2022-01-06 00:06] VITALS: BP 127/82; PULSE 110; TEMP 37.1
[2022-01-06 00:17] VITALS: BMI 24.2
[2022-01-06 05:11] VITALS: BP 127/80; PULSE 108
--- NOTE | 2022-01-31 13:32 | PM.OBTRLD ---
OB - Triage/Final Diagnosis Visit Information Comments/Additional reasons for admission: I have assessed the risk for this patient, Pinky Castellano, and determined that she would benefit from observation care. Final Diagnosis (1) Decreased movement: Code(s): O36.8190 - Decreased movements, unspecified trimester, not applicable or unspecified Status: Acute
== END 2022-01-06 08:40 | disposition home or self-care (01) ==
LOC: ANHOBOP 01-06 00:02 → ANHOBPP 01-06 00:05
PROVIDERS: Admitting Provider Obstetrics & Gynecology; Visit Provider Student in an Organized Health Care Education/Training Program
DX: O36.8190 Decreased fetal movements, unspecified trimester, not applicable or unspecified (principal); Z3A.37 37 weeks gestation of pregnancy
CPT/HCPCS: 59025; 76815; 76819; G0378; G0379

== ENCOUNTER 2022-01-16 14:59 | Inpatient (IN) | payer BC, SELFPAY ==
[2022-01-16] VITALS (81 sets, daily range): BP systolic 95–132; BP diastolic 55–94; PULSE 60–206; TEMP 36.2–36.9; O2SAT 98–100; BMI 23.8
[2022-01-16 15:40] LABS: Basophils Percent Auto 0.2 % (0.2-1.2); Eosinophils Absolute Auto 0.1 K/mm3 (0-0.3); Eosinophils Percent Auto 1.1 % (0-4.4); Hematocrit 35.3 % (37.0-47.0); Hemoglobin 11.2 g/dL (12.0-15.0); Immature Granulocyte Absolute 0.08 K/mm3 (0.00-0.031); Lymphocytes Absolute Auto 1.95 K/mm3 (0.9-3.2); Lymphocytes Percent Auto 24.1 % (18.3-44.2); Mean Corpuscular HGB Conc 31.7 g/dl (32-36); Mean Corpuscular Volume 91.5 fl (80-100); Monocytes Absolute Auto 0.6 K/mm3 (0.1-0.6); Monocytes Percent Auto 7.5 % (2.6-8.5); Neutrophils Absolute Auto 5.3 K/mm3 (1.3-6.7); Neutrophils Percent Auto 66.1 % (45.5-73.1); Platelet Count Result 151 k/mm3 (150-375); Red Blood Count 3.86 M/mm3 (4.2-5.4); Red Cell Distribution Width 13.9 % (11.5-14.5); White Blood Count 8.1 K/mm3 (4.5-10.0)
[2022-01-16] MEDS: LACTATED RINGERS 1,000 ML 125 ML IV CONT ×3 (15:53→21:46)
[2022-01-16] MEDS: OXYTOCIN 30 UNITS/NS 500 ML 30 UNITS/500 ML BAG IV CONT (15:54)
--- NOTE | 2022-01-16 16:12 | LDADM ---
This patient, Pinky Castellano, was admitted to Labor/Delivery/Recovery 107 on 01/16/22 at 14:59. Plans for labor, pain management and were discussed with patient. Patient/family oriented to hospital policies and general routines including ID bracelet, bed and alarms, visiting hours, pain management, procedures, bathroom and other care routines, personal items, smoking policy, room service/diet and guest tray routines, security routines, and visiting hours. Patient/Family are encouraged to report perceived risks to care and to ask questions if they do not understand what they are told or what they should do. See OBIX for further documentation.
--- NOTE | 2022-01-16 16:34 | PM.IMHP ---
H&P: HPI History of Present Illness Date/Time: 01/16/22 16:34 Chief Complaint: Induction of labor Narrative: Patient is a 32-year-old LMP 04/17/2021 currently 39w1d with SARITHA 01/22/22 who presented to labor and delivery for a scheduled elective induction of labor. Patient is dated by LMP consistent with ultrasound on 07/08/2021 at 11 weeks gestation. In general, patient reports feeling well. Reports occasional contractions. Denies vaginal bleeding or leakage of fluid. Reports good movement. Review of Systems Review of Systems: All systems reviewed & are unremarkable except as noted in HPI and below Constitutional: Constitutional: Reports as per HPI and Reports no additional constitutional complaints Eyes: Eyes: Reports as per HPI and Reports no additional eye complaints ENT: Reports system reviewed and no additional complaints, except as documented and Reports as per HPI Cardiovascular: Cardiovascular: Reports as per HPI and Reports no additional cardiovascular complaints Respiratory: Respiratory: Reports as per HPI and Reports no additional respiratory complaints Gastrointestinal: Gastrointestinal: Reports as per HPI and Reports no additional gastrointestinal complaints Genitourinary: Genitourinary: Reports no additional female genitourinary complaints and Reports as per HPI Musculoskeletal: Musculoskeletal: Reports no additional musculoskeletal complaints and Reports as per HPI Integumentary/Breasts: Skin/Breast: Reports system reviewed and no additional complaints, except as docu and Reports as per HPI Neurologic: Reports system reviewed and no additional complaints, except as documented and Reports as per HPI Psychiatric: Psychiatric: Reports no additional psychiatric complaints and Reports as per HPI Endocrine: Endocrine: Reports no additional endocrine complaints and Reports as per HPI Hematologic/Lymphatic: Hematologic/Lymphatic: Reports no additional hematologic/lymphatic complaints and Reports as per HPI Allergic/Immunologic: Allergic/Immunologic: Reports no additional allergic/immunologic complaints and Reports as per HPI PMFSH Past Medical History Medical History Amenorrhea BARB II (cervical intraepithelial neoplasia II) Cold sore Vaginal delivery Surgical History Surgical History H/O LEEP Family History Family History Other No pertinent family history Social History Social History Smoking status: Never smoker Second hand tobacco smoke exposure: No Alcohol intake: former Drinks per week: 4 Alcohol use details: not since Substance use: never Gender identity (if verbalized by the patient): Female Spiritual care concerns: No Meds Home Medications and Allergies Home Medications Medication Instructions Recorded Confirmed Type prenat.vits,omkar,mnj-aqmx-joodj 1 tablet PO DAILY 07/04/21 01/16/22 History Allergies Allergy/AdvReac Type Severity Reaction Status Date / Time No Known Allergies Allergy Verified 01/09/22 14:48 Vital Signs Vital Signs - 24 hr 01/16/22 15:23 01/16/22 15:31 01/16/22 15:45 Temperature Pulse Rate 86 92 73 Blood Pressure 129/84 118/83 119/79 01/16/22 16:00 01/16/22 16:15 01/16/22 16:30 Temperature 36.5 C Pulse Rate 78 80 79 Blood Pressure 113/77 112/72 118/71 Exam Const: General: cooperative, healthy appearing, comfortable and no acute distress HENMT: Head: normal to inspection Ears: hearing grossly normal bilaterally Eyes: General: appearance normal, both eyes and all related structures Neck: Neck: normal visual inspection Thyroid: thyroid normal Resp: Effort & Inspection: normal respiratory effort Auscultation: clear to auscultation bilaterally Cardio: Rate: regular rate
--- NOTE | 2022-01-16 17:03 | WPDHPUPDATE1 ---
History and Physical Update Update Date/Time: 01/16/22 17:03 History and Physical has been reviewed, including an updated exam of the patient. There are NO changes in the patient's condition. Risks, benefits, and alternatives have been discussed and questions answered. Patient agrees to proceed with procedure.
--- NOTE | 2022-01-16 17:29 | WPDANESEPPF ---
Anes - Initial Pre Proc Eval Procedure: labor epidural Date/Time: 01/16/22 17:29 Surgeon: Julissa Quintanilla MD Pre Op Diagnosis: labor pain Pre Op Diagnosis: iol Patient Data Age: 32 Gender: F Height: 1.57 m Weight: 59 kg Last Vital Signs Temp 36.5 C 01/16/22 16:00 Pulse 71 01/16/22 17:15 BP 121/79 01/16/22 17:15 Allergies Allergy/AdvReac Type Severity Reaction Status Date / Time No Known Allergies Allergy Verified 01/09/22 14:48 Home Medications Medication Instructions Recorded Confirmed Type prenat.vits,omkar,atl-wgfc-dwhsk 1 tablet PO DAILY 07/04/21 01/16/22 History Laboratory Tests 01/16/22 01/16/22 01/16/22 15:33 15:33 15:33 WBC 8.1 K/mm3 K/mm3 (4.5-10.0) RBC 3.86 M/mm3 L M/mm3 (4.2-5.4) Hgb 11.2 g/dL L g/dL (12.0-15.0) Hct 35.3 % L % (37.0-47.0) MCV 91.5 fl fl (80-100) MCH 29.0 pg pg (26-34) MCHC 31.7 g/dl L g/dl (32-36) RDW 13.9 % % (11.5-14.5) Plt Count 151 k/mm3 k/mm3 (150-375) MPV 10.0 fl fl (7.4-10.4) Immature Gran % (Auto) 1.0 % H % (0-0.5) Neut % (Auto) 66.1 % % (45.5-73.1) Lymph % (Auto) 24.1 % % (18.3-44.2) [place] % (Auto) 7.5 % % (2.6-8.5) Eos % (Auto) 1.1 % % (0-4.4) Baso % (Auto) 0.2 % % (0.2-1.2) Lymph # (Auto) 1.95 K/mm3 K/mm3 (0.9-3.2) [place] # (Auto) 0.6 K/mm3 K/mm3 (0.1-0.6) Eos # (Auto) 0.1 K/mm3 K/mm3 (0-0.3) Baso # (Auto) 0.0 K/mm3 K/mm3 (0.0-0.1) Abs Immat Gran (auto) 0.08 K/mm3 H K/mm3 (0.00-0.031) Absolute Neuts (auto) 5.3 K/mm3 K/mm3 (1.3-6.7) Absolute Nucleated RBC 0.0 K/mm3 K/mm3 (0.0-0.012) Nucleated RBC % 0.0 % % (0.0-0.2) RPR Pending Blood Type A Positive Antibody Screen Negative Patient hx anesthesia problems: none Family hx anesthesia problems: none Results Review: All pre-operative results and documents have been reviewed as part of the pre-operative evaluation. [facility] Past Medical History Medical History Amenorrhea BARB II (cervical intraepithelial neoplasia II) Cold sore Vaginal delivery Surgical History Surgical History H/O LEEP Family History Family History Other No pertinent family history Social History Social History Smoking status: Never smoker Second hand tobacco smoke exposure: No Alcohol intake: former Drinks per week: 4 Alcohol use details: not since Substance use: never Gender identity (if verbalized by the patient): Female Spiritual care concerns: No Anes - Eval Final PreProcedure Day of Procedure 01/16/22 17:29 Patient weight: normal ASA classification: II Anesthetic plan: proceed Anesthesia type and monitoring: regional epidural and standard monitoring Results Review: All pre-operative results and documents have been reviewed as part of the pre-operative evaluation. Informed Consent: The patient's anesthetic plan and its attendant risks and benefits were discussed with the patient/family/POA. Questions were solicited and answers provided to the satisfaction of the patient/family/POA.
--- NOTE | 2022-01-16 23:03 | P.PNOB_ITS ---
Pain Control Date/time seen: 01/16/22 23:03 Patient doing well. Comfortable s/p epidural. SVE /-2. AROM performed, clear fluid noted. EFM category 1. [place] shows contractions q2-3 mins. Continue pitocin.
[2022-01-17] VITALS (32 sets, daily range): BP systolic 82–126; BP diastolic 46–95; PULSE 53–173; RESP 16–18; TEMP 36.2–36.9; O2SAT 98–100
--- NOTE | 2022-01-17 05:41 | PM.OBPRVD ---
OB - Delivery Note Procedure Delivery date: 01/17/22 Procedure: Patient is a 32-year-old now who presented to labor and delivery on the afternoon of 01/16/2022 for scheduled elective induction of labor at 39 weeks 1 day gestation. Patient was admitted to labor and delivery. Initial cervical exam was approximately 1 cm dilated. Induction of labor was started with Pitocin. Pitocin was slowly titrated throughout the afternoon and evening. Patient became uncomfortable and requested an epidural for pain management which was placed without difficulty. Artificial rupture of membranes was performed at 11:00 p.m. Clear amniotic fluid was noted. Pitocin was continued and patient made progressive cervical change. She was noted to be fully dilated at 4:59 a.m. Patient was encouraged to push and found to be pushing well. She was prepped and draped for delivery. At 5:22 a.m., patient delivered infant head atraumatically and without difficulty in EMILY presentation. A compound presentation was noted as the right hand delivered alongside face. Occiput restituted to maternal right side. A nuchal cord x1 was noted and reduced. With subsequent push, the 's neck, shoulders, and rest of body delivered without difficulty. Infant was placed on maternal abdomen where care was assumed by awaiting nursing staff. 's nose and mouth were suctioned with bulb suction. was crying spontaneously. Delayed cord clamping was performed for approximately 60 seconds. The cord was clamped and cut. A segment of cord was collected for cord gases. Cord blood was collected. The placenta was delivered spontaneously and intact. Uterine fundus was noted to be firm with massage. On inspection, a superficial midline periurethral laceration was noted. This laceration was repaired with a single ifqbni-pk-odjpx suture using 3-0 Vicryl. Excellent hemostasis was noted. Estimated blood loss for entire delivery was 100 cc. The infant was a live-born male infant, Apgars 8 and 9, weighing 7 lbs. 6 oz. Both mother and baby doing well at end of delivery. Events: Elective Induction of Labor Induction method: Per Pitocin Protocol Delivery augmentation: Rupture of Membranes Delivery monitor: External FHT and External Uterine Route of delivery: Laceration Description: Periurethral (superficial midline) Delivery repair: vicryl (3-0) Specimen: Yes (cord blood and cord gases) Quantitative Blood Loss (ml): 100 Anesthesia type: Epidural Disposition: Floor Complications: No immediate complications Baby Date of : 01/17/22 Time of : 05:22 Weeks of gestation at delivery: 39 (39.2) Infant gender: Male Weight (pounds): 7 Weight (ounces): 6 presentation: compound (right hand delivered alongside of face) position: Right Occiput Anterior Placenta delivery description: Spontaneous Cord Vessel Description: 3 Vessels, Nuchal Cord (x1) and Delayed Cord Clamping (x60w) score one minute: 8 score five minutes: 9 AMG Delivery Billing Delivery Delivery: Delivery Charge
[2022-01-17] MEDS: OXYTOCIN 30 UNITS/NS 500 ML 30 UNITS/500 ML BAG 125 UNITS IV CONT (05:57)
[2022-01-17 06:25] LABS: Rapid Plasma Reagin Non-Reactive (NonReactive)
[2022-01-17] MEDS: IBUPROFEN 600 MG TABLET PO ×2 (07:44→19:28)
[2022-01-17 09:46] LABS: HIV 1/2 Ab P24 Ag Result Negative (Negative)
--- NOTE | 2022-01-17 10:11 | OBPPTRN ---
0927-Patient transferred to post room #290 via wheelchair. Support person present. Oriented to unit, room, information board, rooming in, admission packet and security measures. Patient verbalizes understanding.
--- NOTE | 2022-01-17 12:30 | PC.NURSE ---
[id number] Introductions were made, then consulted with patient to assess needs related to . Infant remains skin to skin sleeping on mother. Mother led the conversation with her?plans to feed?her infant and the?experience so far. Mother states she will most likely bottle feed her and is giving a try. Resources provided for inpatient and outpatient services using a resource guide and mom/baby guide. Mother voiced understanding of information and voiced willingness to receive some education and encouragement. Demonstrated stimulating infant with massage touch, changing position, hand expression, allowing to navigate her chest and breast. demonstrates exploration with no attempt to breastfeed at this time. Mother works well with her infant with encouragement and education. Encouraged understanding of the benefits of skin to skin (unwrapping infant and placing vertically on her chest), responsive feeding and how to watch for early feeding signs, frequency of feeding on demand about every 8-12 times in 24 hours (every 2-3 hours), milk production, duration of feeding, signs of adequate intake/output and how to record on the feeding sheet. Reviewed good handwashing when or touching the breast/nipples to prevent infection. Resources used to facilitate learning were used with the resource tool and mom/baby guide. Mother voiced understanding if she would like assistance to breastfeed, if does not latch or there is discomfort with .
[2022-01-18 04:41] VITALS: BP 110/68; PULSE 71; RESP 16; TEMP 36.2; O2SAT 100
[2022-01-18 05:14] LABS: Hemoglobin 9.9 g/dL (12.0-15.0)
--- NOTE | 2022-01-18 07:00 | PC.NURSE ---
Pt introductions made and plan of care discussed per post op c section, pain management, breast feeding, daily care activities and pending discharge. PT and spouse both er recipients of such instructions and no barriers to learning identified at this time. PT receives such instructions per one to one discussion, mom baby care guide and demonstrations. PT verbalized understanding of such care.
--- NOTE | 2022-01-18 08:38 | WPDANESPN ---
Anes - Prog Note Post-Op Date/Time: 01/18/22 08:38 Cardiovascular status: normal Respiratory status: normal Airway patency: baseline Mental status: baseline Post-Op hydration status: normal Vital Signs: Last Vital Signs Temp 36.2 C L 01/18/22 04:41 Pulse 71 01/18/22 04:41 Resp 16 01/18/22 04:41 BP 110/68 01/18/22 04:41 Pulse Ox 100 01/18/22 04:41 O2 Del Method Room Air 01/17/22 09:45 Pain Score (VAS): 0 Laboratory Tests 01/18/22 04:46 01/17/22 01/18/22 08:39 04:46 Hgb 9.9 L Hct 31.0 L HIV 1&2 Ab/P24 Ag 4thGn Negative Post-procedural complaints: none Patient Feedback: Patient satisfied with anesthetic care.
[2022-01-18 10:00] VITALS: BP 120/70; PULSE 88; RESP 18; TEMP 36.8; O2SAT 99
[2022-01-18] MEDS: POLYSACCHARIDE IRON COMPLEX 150 MG CAPSULE PO ×2 (10:00→12:39)
--- NOTE | 2022-01-18 11:21 | P.PNOB_ITS ---
OB - PN: Subj Subjective Date/time seen: 01/18/22 11:21 Patient doing well. Minimal cramping well controlled me dication. Minimal lochia. Ambulating without difficulty. Voiding well. OB - PN: Obj Data Labs CBC & Chem 7: 01/18/22 04:46 Labs: Laboratory Results - last 24 hr 01/18/22 04:46 Hgb 9.9 L Hct 31.0 L OB - PN A/P Assessment and Plan (1) Normal spontaneous vaginal delivery: Code(s): O80 - Encounter for full-term uncomplicated delivery Status: Acute Assessment and Plan: PPD#1 doing well continue routine care dc home in stable condition emergency precautions reviewed f/u in office in 4-6 weeks Time Spent With Patient Time: Total time spent is greater than 50% in coordination of care (as documented) at patient's floor/unit and/or counseling patient: Review of Systems Review of Systems: All systems reviewed & are unremarkable except as noted in HPI and below Exam Const: General: cooperative, healthy appearing, comfortable and no acute distress GI: Inspection: non-distended GI Palp: Yes Soft to palpation and No Tenderness to palpation present (GI) Other: fundus firm below umbilicus Extrem: Right lower extremity: no edema Left lower extremity: no edema Other: no calf tenderness
--- NOTE | 2022-01-18 11:25 | PM.OBDSVD ---
DS: Admitting Diagnosis Discharge Date 01/18/22 Admitting Diagnosis IUP at 39w1d gestation Elective induction of labor DS: Discharge Diagnosis Discharge Diagnosis (1) Normal spontaneous vaginal delivery: Code(s): O80 - Encounter for full-term uncomplicated delivery Status: Acute OB - DS: Summary OB Procedures : None OB Procedures Intrapartum: Spontaneous Vag Delivery OB Procedures: : None Time Spent with Patient Time attestation: Total time spent providing and/or coordinating discharge services: DS: Data Data Completed and Pending Labs on day of discharge: Labs from last 24 hours 01/18/22 04:46 Hgb 9.9 L Hct 31.0 L Discharge Plan Discharge Attending physician on discharge: Julissa Quintanilla Discharging Clinician: Julissa Quintanilla Anticipated Discharge Date/Time: 01/18/22 11:26 Patient Disposition: Home, Self-Care Activity: as tolerated and pelvic rest Diet: regular Discharge Instructions: Call office ([phone]) to schedule a visit in 4-6 weeks. You may take Ibuprofen 600mg every 6 hours as needed for pain. Pain medication may make you constipated. It may be helpful to take an [id number] stool softener, such as Colace and/or Senokot, along with the pain medication to help lessen constipation. Call office or go to ED for pain not controlled with medication, headache, chest pain, shortness of breath, fever, chills, persistent nausea or vomiting, severe abdominal pain, heavy vaginal bleeding >2 pads/hour, foul vaginal discharge or odor, or problems with your breasts. Patient Instructions: Antibiotic Form Stand Alone Forms: General Discharge Information Follow-up/Referrals: Julissa Quintanilla MD [Physician] - Discharge Medications: Continued prenat.vits,omkar,hwi-scwa-fkpwf Tablet 1 tablet PO DAILY Date of admission: 01/16/22 14:59 Primary Care Provider: PHYSICIAN,[employer]CHO[employer] PRINCIPAL Admitting Provider: Julissa Quintanilla Attending physician on admission: Julissa Quintanilla
--- NOTE | 2022-01-18 12:30 | PC.NURSE ---
pt received discharge instructions per protocol and verbalized understanding of such care.
[2022-01-18] MEDS: TETANUS,DIPHTHERIA,AC PERTUSSIS ADULT (0.5 ML) BOOSTRIX IM (12:37)
[2022-01-18] MEDS: ACETAMINOPHEN 325 MG TABLET 650 MG PO (12:38)
[2022-01-18] MEDS: DOCUSATE SODIUM 100 MG CAPSULE PO (12:39)
[2022-01-18] MEDS: IBUPROFEN 600 MG TABLET PO (12:39)
--- NOTE | 2022-01-18 12:54 | PC.NURSE ---
PT discharged to home ambulatory accompanied by spouse and and takent to waiting car. Follow up appts confirmed
[2022-01-20 09:23] VITALS: BP 122/83; PULSE 62; RESP 16; TEMP 36.8; O2SAT 100
== END 2022-01-18 12:47 | disposition home or self-care (01) | DRG 807 ==
LOC: ANHLDR 01-17 08:44 → ANHOB2 01-17 09:28
PROVIDERS: Admitting Provider Student in an Organized Health Care Education/Training Program; Visit Provider Student in an Organized Health Care Education/Training Program
DX: O32.6XX0 Maternal care for compound presentation, not applicable or unspecified (principal); Z37.0 Single live birth; O76 Abnormality in fetal heart rate and rhythm complicating labor and delivery; O69.81X0 Labor and delivery complicated by cord around neck, without compression, not applicable or unspecified; O71.82 Other specified trauma to perineum and vulva; Z3A.39 39 weeks gestation of pregnancy
CPT/HCPCS: 36415; 85014; 85018; 85025; 86592; 86703; 86850; 86900; 86901; 90715; A9270; G0432; J2590; J2795; J7120